=== PATIENT | male | born 1935 | race Caucasian/White ===

== ENCOUNTER 2017-06-19 20:30 | Emergency (ER) | payer BC, MEDICARE ==
[~2017-06-19] VITALS: Ht 172.7 cm; Wt 72.0 kg
[2017-06-19 20:59] VITALS: BP 146/82
[2017-06-19] MEDS ORDERED: HYDR12.58 PO (21:05)
[2017-06-19 21:32] LABS: MICROSCOPIC INDICATED
[2017-06-19 21:43] LABS: CULTURE INDICATED? NO
== END 2017-06-19 22:36 | disposition home or self-care (01) ==
LOC: ED 22:20
DX: N40.1 Benign prostatic hyperplasia with lower urinary tract symptoms (principal); R33.9 Retention of urine, unspecified; Z89.611 Acquired absence of right leg above knee
CPT/HCPCS: 51702; 81001; 99284

== ENCOUNTER 2019-09-18 14:56 | Emergency (ER) | payer MEDICARE, OTHER ==
[~2019-09-18] VITALS: Ht 188 cm; Wt 58.0 kg
[~2019-09-18 14:56] MED LIST: HYDROCHLOROTH12.5 MG PO
[2019-09-18 15:00] VITALS: BP 138/58
--- NOTE | 2019-09-18 15:23 | NUR ---
PER MD, PT BLADDER EXTREMELY FULL. INDWELLING TATE CATHETER PLACED PER MD ORDER. CLEAR YELLOW URINE DRAINING. URINE COLLECTED AND SENT TO LAB. PT TOLERATED WELL. LAB AT BEDSIDE.
[2019-09-18 15:27] LABS: BASOPHILS # (AUTO) 0.01 x10^3/uL (0-0.1); BASOPHILS % (AUTO) 0 % (0-1); EOSINOPHILS # (AUTO) 0.01 x10^3/uL (0-0.4); EOSINOPHILS % (AUTO) 0 % (1-7); LYMPHOCYTES # (AUTO) 0.33 x10^3/uL (1-3.4); LYMPHOCYTES % (AUTO) 8 % (22-44); MD NO; MEAN CORPUSCULAR HEMOGLOBIN 28.2 pg (27.5-34.5); MEAN CORPUSCULAR HGB CONC 32.7 g/dL (33.2-36.2); MEAN CORPUSCULAR VOLUME 86.2 fL (81-97); MONOCYTES # (AUTO) 0.32 x10^3/uL (0.2-0.8); MONOCYTES % (AUTO) 8 % (2-9); NEUTROPHILS # (AUTO) 3.39 x10^3/uL (1.8-6.8); NEUTROPHILS % (AUTO) 83 % (42-75); PLATELET COUNT 215 x10^3/uL (130-400); RED BLOOD COUNT 4.54 x10^6/uL (4.38-5.82); RED CELL DISTRIBUTION WIDTH 16.5 % (9.4-14.8)
[2019-09-18 15:32] LABS: MICROSCOPIC AUTO
[2019-09-18 15:38] LABS: ALBUMIN 3.4 g/dL (3.4-5.0); ANION GAP 9 mmol/L (5-15); CALCIUM 8.8 mg/dL (8.5-10.1); CHLORIDE 109 mmol/L (98-107); CREATININE 1.22 mg/dL (0.7-1.3)
--- NOTE | 2019-09-18 15:41 | NUR ---
ALL RESULTS ARE BACK AT THIS TIME. CHART UP FOR RECHECK.
--- NOTE | 2019-09-18 16:11 | NUR ---
ABOUT 600ML OF CLEAR YELLOW URINE DRAINED FROM INDWELLING TATE. PT BAG CHANGED TO LEG BAG.
== END 2019-09-18 16:47 | disposition home or self-care (01) ==
LOC: ED 16:16
DX: N40.1 Benign prostatic hyperplasia with lower urinary tract symptoms (principal); R33.8 Other retention of urine
CPT/HCPCS: 36415; 51702; 80048; 81001; 82040; 85025; 99284